=== PATIENT | female | born 1995 | race Caucasian/White ===

== ENCOUNTER → 2016-09-20 | Outpatient (CLI) | payer OTHER ==
[~2016-09-20] VITALS: Ht 165.1 cm; Wt 80.0 kg
[~2016-09-20] MED LIST: MOTR200T44 PO; TYLE325T5 PO; VITAPRTA PO
[2016-09-20 16:27] VITALS: BP 117/75
[2016-09-20 17:13] VITALS: BP 113/67
== END ==
LOC: M LDO 15:57
PROVIDERS: ATTEND Advanced Practice Midwife
DX: O62.0 Primary inadequate contractions (principal); Z3A.36 36 weeks gestation of pregnancy

== ENCOUNTER 2016-09-28 20:24 | Inpatient (IN) | payer OTHER ==
[2016-09-28] VITALS (14 sets, daily range): BP systolic 108–133; BP diastolic 58–79
[~2016-09-28] VITALS: Ht 165.1 cm; Wt 79.0 kg
[2016-09-28] MEDS ORDERED: PENICILLIN G POTASSIUM IV 5 MU in D5W MINI-BAG PLUS 100 ML IV STA (21:05)
[2016-09-28] MEDS ORDERED: LACTATED RINGER'S 1000 ML IV STA (21:05)
[2016-09-28 21:47] LABS: MEAN CORPUSCULAR HGB CONC 33.9 g/dl (32.0-36.5); MEAN CORPUSCULAR VOLUME 82.7 fl (80.0-96.0); RED CELL DISTRIBUTION WIDTH 13.9 % (11.5-14.5); WHITE BLOOD COUNT 13.6 K/mm3 (4.0-10.0)
[2016-09-28] MEDS ORDERED: FENTANYL 2MCG/ML ROPIVACAINE 0.2% NACL 250 ML CADD As Ordered ONE (22:18)
[2016-09-28] MEDS ORDERED: NALOXONE INJ 0.4 MG/1 ML VIAL (J2310) IV PRN (23:30)
[2016-09-28] MEDS ORDERED: EPIDURAL/PCA KEYS XX PRN (23:30)
[2016-09-28] MEDS ORDERED: diphenhydrAMINE INJ 50MG/ML VIAL (J1200) IV PRN (23:30)
[2016-09-28] MEDS ORDERED: EPIDURAL COMMENT XX SCH (23:30)
[2016-09-28] MEDS ORDERED: FENTANYL/ROPIVACAINE/NACL CADD 250 ML EPIDURAL SCH (23:30)
[2016-09-28] MEDS ORDERED: ONDANSETRON 4MG/2ML VIAL (J2405) IV PRN (23:30)
[2016-09-28] MEDS ORDERED: LACTATED RINGER'S 1000 ML IV PRN (23:30)
[2016-09-28] MEDS ORDERED: REFRIGERATOR IV KEYS XX PRN (23:30)
[2016-09-29] VITALS (54 sets, daily range): BP systolic 86–135; BP diastolic 46–82
[2016-09-29] MEDS: PENICILLIN G POTASSIUM IV 2.5 MU in D5W 100 ML IV SCH ×4 (02:05→14:02)
--- NOTE | 2016-09-29 04:36 | HPE ---
DATE OF ADMISSION: 09/28/2016 Angelika is a 21-year-old 3, para 1-1-0-2 at 37-2/7 weeks gestation with EDC of 10/17/2016, based on first trimester ultrasound. She presents to labor and delivery today with report of onset of uncomfortable contractions at approximately 1600, reports them to be about every four minutes. She denies vaginal bleeding and leakage of fluid. Her fetus has been active. care has been fragmented, initiated care [facility], had one visit, transferred to Dr. Tony and has not been seen in a few weeks at that provider. All care has been complicated by fragmented care, psychiatric diagnosis. OBSTETRICAL HISTORY: 1. February 15, 2013, she had a spontaneous vaginal delivery at 39 weeks gestation for a 7 pound 12 ounce female. 2. December 2014, she had a spontaneous vaginal delivery at 36-6/7 weeks of a 6 pound 4 ounce male. OB LABS: Blood type is A positive, antibody screen negative. Pap was normal. Rubella immune, VDRL nonreactive. Hepatitis B surface antigen negative, HIV negative. GBS is unknown, unable to determine if she even had the gestational diabetic screening drawn. Gonorrhea and chlamydia were negative. Urine culture with no growth. She declined genetic serum screening markers. There is no record of gestational diabetic screening. PAST MEDICAL HISTORY: depression, ovarian cyst. SURGERIES: Tonsillectomy. FAMILY HISTORY: Diabetes, cancer, stroke, bipolar, seizure disorder, stomach cancer. SOCIAL HISTORY: The patient is recently . She smoked prior to . She denies alcohol and drug use. There is a known history of positive chlamydia; however, she was negative in the . She denies history of abuse physical, sexual and emotional. ALLERGIES: No known drug allergies. CURRENT MEDICATIONS: She reports not taking any medications. OBJECTIVE: Temperature 98.6, pulse 110, blood pressure is 123/76. She is alert and oriented times three, tenses with contractions; they do palpate moderate. The heart rate is 140 with moderate variability, positive excels, no decelerations noted. [place] every 2-4 minutes. STERILE VAGINAL EXAM: 4-5 cm dilated, 90% effaced, -2 station, bulging bag of water. No bloody show noted with exam. Her abdomen is gravid, cephalic presentation confirmed by bedside ultrasound. Estimated weight 7 pounds. ASSESSMENT: 1. Intrauterine at 37-2/7 weeks. 2. heart rate category one. 3. Labor. PLAN: Admit the patient to labor and delivery, labs as ordered. Out of bed ad callum. Clear liquid diet. She does desire an epidural for her labor coping following an IV fluid bolus and treatment for unknown GBS with IV antibiotics. I do anticipate a normal spontaneous vaginal delivery.
[2016-09-29] MEDS: ePHEDrine SULFATE 25 MG/5 ML(5MG/ML) SYRINGE IV PRN ×2 (08:31→09:01)
[2016-09-29] MEDS ORDERED: OXYTOCIN 30 UNITS IN 0.9% NaCl 500ML IV BAG (J2590) As Ordered ONE (15:50)
[2016-09-29] MEDS ORDERED: OXYTOCIN DRIP 30 UNITS in APPROPRIATE DILUENT 1 EA IV SCH (17:34)
[2016-09-29] MEDS ORDERED: MEASLES,MUMPS,RUBELLA VACCINE INJ (MMR-II) (90707) SC SCH (17:45)
[2016-09-29] MEDS ORDERED: DIBUCAINE 1% OINTMENT 30GM TOP PRN (17:45)
[2016-09-29] MEDS ORDERED: METHYLERGONOVINE MALEATE 0.2 MG TAB PO PRN (17:45)
[2016-09-29] MEDS ORDERED: RHOGAM 300 MCG (1500 IU) INJ (J2790) IM SCH (17:45)
[2016-09-29] MEDS ORDERED: DOCUSATE SODIUM 100 MG CAP PO PRN (17:45)
[2016-09-29] MEDS: IBUPROFEN 800 MG TAB PO PRN (17:50)
--- NOTE | 2016-09-29 18:09 | DN ---
DATE: 09/29/2016 DELIVERY NOTE: Angelika is a 21-year-old 3, para 2-1-0-3 now, who was admitted to labor and delivery in active labor. She utilized an epidural for her labor coping. She did progress to full dilation at 1705, pushed to a normal spontaneous vaginal delivery of a live male in occiput anterior (OA) position with restitution to left occiput transverse (LOT) position 1712. There was no nuchal cord. The shoulders delivered with gentle downward guidance and the corpus immediately followed. [place] was placed on maternal abdomen crying and active. His mouth and nares were bulb suctioned. A spontaneous expulsion of an intact placenta with three-vessel cord by Hernandez mechanism was at 1716. Uterine hemostasis achieved with uterine fundal massage, intravenous (IV) Pitocin rapid infusion. Estimated blood loss 400 mL. Perineum and vagina inspected, noted to have bilateral labial lacerations. The labial lacerations were repaired with 3-0 Rapide in interrupted sutures. male weighed 7 pounds 7 ounces, 3364 grams, scores of eight and nine. Mom does to plan to bottle feed her son. The family have named him Deondre. At the close of delivery, lap counts, needle counts and instrument counts were correct and verified.
[2016-09-29] MEDS: ACETAMINOPHEN 500 MG TAB PO PRN (20:17)
[2016-09-30] MEDS: IBUPROFEN 800 MG TAB PO PRN ×3 (01:57→17:51)
[2016-09-30 05:28] VITALS: BP 106/60
[2016-09-30] MEDS: ACETAMINOPHEN 500 MG TAB PO PRN (07:50)
[2016-09-30] MEDS: PRENATAL VITAMIN TAB PO SCH (07:50)
[2016-09-30] MEDS ORDERED: ADACEL/BOOSTRIX VACCINE (DIPHTH/PERTUSS/ACELL/TETANUS)0.5ML SYR (90715) IM ONE (09:00)
[2016-09-30 18:02] VITALS: BP 122/80
[2016-10-01] MEDS: IBUPROFEN 800 MG TAB PO PRN ×2 (03:07→11:17)
[2016-10-01 06:05] VITALS: BP 104/59
[2016-10-01] MEDS ORDERED: medroxyPROGESTERone ACET IM SUSP 150 MG/ML VIAL (J1050) IM ONE (07:15)
[2016-10-01] MEDS: PRENATAL VITAMIN TAB PO SCH (07:54)
[2016-10-01] MEDS ORDERED: PRENTAB9 PO (08:15)
[2016-10-01] MEDS ORDERED: ACET50TA PO (08:16)
[2016-10-01] MEDS ORDERED: IBUP-1114 PO (08:18)
== END 2016-10-01 11:40 | disposition home or self-care (01) | DRG 560 ==
LOC: M LDO 20:24 → M LDI 20:57 → M OBS 09-29 20:04
PROVIDERS: ADMIT Advanced Practice Midwife; ATTEND Advanced Practice Midwife
PROC: 10E0XZZ Delivery of Products of Conception, External Approach (ICD-10-PCS; principal; 2016-09-29)
PROC: 0HQ9XZZ Repair Perineum Skin, External Approach (ICD-10-PCS; 2016-09-29)
DX: O99.334 Smoking (tobacco) complicating childbirth (principal); F17.210 Nicotine dependence, cigarettes, uncomplicated; Z37.0 Single live birth; Z3A.37 37 weeks gestation of pregnancy; Z83.3 Family history of diabetes mellitus; Z81.8 Family history of other mental and behavioral disorders; Z82.0 Family history of epilepsy and other diseases of the nervous system; Z82.49 Family history of ischemic heart disease and other diseases of the circulatory system; Z80.0 Family history of malignant neoplasm of digestive organs; O70.0 First degree perineal laceration during delivery

== ENCOUNTER 2017-09-09 13:37 | Emergency (ER) | payer OTHER ==
[2017-09-09] MEDS: NS 500 ML IV (14:30)
[2017-09-09 15:14] LABS: BASO % 0.2 % (0.0-1.0); EOS # 0.2 10^3/uL (0.0-0.50); EOS % 1.9 % (0.0-3.0); HEMATOCRIT 38.7 % (36.0-47.0); HEMOGLOBIN 13.9 g/dl (12.0-16.0); IMMATURE GRANULOCYTE % 0.4 % (0-0); LYMPH # 1.9 10^3/uL (1.5-6.5); LYMPH % 20.5 % (24.0-44.0); MEAN CORPUSCULAR HEMOGLOBIN 31.4 pg (27.0-33.0); MEAN CORPUSCULAR HGB CONC 35.9 g/dl (32.0-36.5); MEAN CORPUSCULAR VOLUME 87.4 fl (80.0-96.0); MONO # 0.6 10^3/uL (0.0-0.8); MONO % 6.2 % (0.0-5.0); NEUTROPHILS # 6.7 10^3/uL (1.8-7.7); NEUTROPHILS % 70.8 % (36.0-66.0); PLATELET COUNT, AUTOMATED 263 10^3/uL (150-450); RED BLOOD COUNT 4.43 10^6/uL (4.00-5.40); RED CELL DISTRIBUTION WIDTH 12.6 % (11.5-14.5); WHITE BLOOD COUNT 9.4 10^3/uL (4.0-10.0)
[2017-09-09 15:30] LABS: ANION GAP 7 MEQ/L (8-16); BLOOD UREA NITROGEN 5 MG/DL (7-18); CALCIUM LEVEL 8.5 MG/DL (8.5-10.1); CARBON DIOXIDE LEVEL 23 MEQ/L (21-32); CHLORIDE LEVEL 107 MEQ/L (98-107); CREATININE FOR GFR 0.41 MG/DL (0.55-1.30); GLOMERULAR FILTRATION RATE > 60.0 (>60); GLUCOSE, FASTING 89 MG/DL (70-100); POTASSIUM SERUM 3.6 MEQ/L (3.5-5.1); SODIUM LEVEL 137 MEQ/L (136-145)
[2017-09-09 15:48] LABS: HCG, SERUM QUANTITATIVE 17037 MIU/ML
[2017-09-09 15:55] LABS: KETONE, URINE AUTO RFX NEGATIVE (NEGATIVE); LEUKOCYTE ESTERASE UR AUTO RFX NEGATIVE (NEGATIVE); MUCUS, URINE RFX SMALL (NEGATIVE); NITRITE, URINE AUTO RFX NEGATIVE (NEGATIVE); RBC, URINE AUTO RFX 0 /HPF (0-3); SPECIFIC GRAVITY UR AUTO RFX 1.026 (1.002-1.035); SQUAM EPITHELIAL CELL UR AURFX 1 /HPF (0-6); WBC, URINE AUTO RFX 0 /HPF (0-3)
== END 2017-09-09 17:10 | disposition home or self-care (01) ==
LOC: M ED 13:37
DX: O20.9 Hemorrhage in early pregnancy, unspecified (principal); Z3A.15 15 weeks gestation of pregnancy; O99.342 Other mental disorders complicating pregnancy, second trimester; F31.9 Bipolar disorder, unspecified; F41.9 Anxiety disorder, unspecified; O99.332 Smoking (tobacco) complicating pregnancy, second trimester; F17.210 Nicotine dependence, cigarettes, uncomplicated
CPT/HCPCS: 76811

== ENCOUNTER → 2017-09-22 | Outpatient (CLI) | payer OTHER ==
[2017-09-22 19:08] LABS: BASO % 0.2 % (0.0-1.0); EOS # 0.2 10^3/uL (0.0-0.50); EOS % 1.3 % (0.0-3.0); HEMATOCRIT 39.7 % (36.0-47.0); HEMOGLOBIN 13.8 g/dl (12.0-16.0); IMMATURE GRANULOCYTE % 0.4 % (0-3.0); LYMPH # 2.1 10^3/uL (1.5-6.5); LYMPH % 17.5 % (24.0-44.0); MEAN CORPUSCULAR HEMOGLOBIN 31.5 pg (27.0-33.0); MEAN CORPUSCULAR HGB CONC 34.8 g/dl (32.0-36.5); MEAN CORPUSCULAR VOLUME 90.6 fl (80.0-96.0); MONO # 0.8 10^3/uL (0.0-0.8); MONO % 6.5 % (0.0-5.0); NEUTROPHILS # 8.8 10^3/uL (1.8-7.7); NEUTROPHILS % 74.1 % (36.0-66.0); PLATELET COUNT, AUTOMATED 274 10^3/uL (150-450); RED BLOOD COUNT 4.38 10^6/uL (4.00-5.40); WHITE BLOOD COUNT 11.9 10^3/uL (4.0-10.0)
[2017-09-22 22:49] LABS: CHLAMYDIA DNA AMPLIFICATION NEGATIVE (NEGATIVE); GC DNA AMPLIFICATION NEGATIVE (NEGATIVE)
[2017-09-24 10:25] LABS: RUBELLA IgG QUALITATIVE IMMUNE (IMMUNE)
[2017-09-24 10:26] LABS: HBsAg Prenatal NEGATIVE (NEGATIVE)
[2017-09-24 10:54] LABS: HIV 1&2 SCREEN CENTAUR NEGATIVE (NEGATIVE)
== END ==
LOC: M SMT 13:15
DX: Z34.81 Encounter for supervision of other normal pregnancy, first trimester (principal); Z3A.11 11 weeks gestation of pregnancy
CPT/HCPCS: 86762

== ENCOUNTER → 2017-09-25 | Outpatient (CLI) | payer OTHER | LOC: M RAD 09:40 | DX: Z34.82 Encounter for supervision of other normal pregnancy, second trimester (principal); Z3A.18 18 weeks gestation of pregnancy | CPT/HCPCS: 76816 ==

== ENCOUNTER → 2017-09-30 | Outpatient (REF) | payer OTHER ==
[2017-10-01 00:13] LABS: CHLAMYDIA DNA AMPLIFICATION NEGATIVE (NEGATIVE); GC DNA AMPLIFICATION NEGATIVE (NEGATIVE)
== END ==
LOC: M LAB REF 17:17
DX: Z20.2 Contact with and (suspected) exposure to infections with a predominantly sexual mode of transmission (principal)
CPT/HCPCS: 87591

== ENCOUNTER → 2017-10-21 | Outpatient (CLI) | payer OTHER | LOC: M SMT 11:28 | DX: Z34.82 Encounter for supervision of other normal pregnancy, second trimester (principal); Z3A.22 22 weeks gestation of pregnancy | CPT/HCPCS: 76816 ==

== ENCOUNTER → 2017-12-15 | Outpatient (CLI) | payer OTHER ==
[2017-12-15 13:30] LABS: HEMATOCRIT 34.6 % (36.0-47.0); HEMOGLOBIN 11.9 g/dl (12.0-15.5); MEAN CORPUSCULAR HEMOGLOBIN 31.1 pg (27.0-33.0); MEAN CORPUSCULAR HGB CONC 34.4 g/dl (32.0-36.5); MEAN CORPUSCULAR VOLUME 90.3 fl (80.0-96.0); PLATELET COUNT, AUTOMATED 212 10^3/uL (150-450); RED BLOOD COUNT 3.83 10^6/uL (4.00-5.40); RED CELL DISTRIBUTION WIDTH 12.9 % (11.5-14.5); WHITE BLOOD COUNT 10.2 10^3/uL (4.0-10.0)
[2017-12-15 14:01] LABS: GLUCOSE CHALLENGE TEST 1 HOUR 109 MG/DL (LESS THAN 140)
== END ==
LOC: M LAB 11:52
DX: Z34.82 Encounter for supervision of other normal pregnancy, second trimester (principal)
CPT/HCPCS: 82950

== ENCOUNTER 2017-12-30 15:41 | Inpatient (IN) | payer OTHER ==
[~2017-12-30 15:41] MED LIST changes: +AMOXICILLIN 500 MG CAP PO; -MOTR200T44 PO; -TYLE325T5 PO; -VITAPRTA PO
[2017-12-30] MEDS ORDERED: DOCUSATE SODIUM 100 MG CAP PO (16:45)
[2017-12-30] MEDS: BETAMETHASONE SOLUSPAN 6MG/ML INJ 5ML (J0702) IM (17:18)
[2017-12-30 17:23] LABS: HEMATOCRIT 32.5 % (36.0-47.0); MEAN CORPUSCULAR HEMOGLOBIN 29.7 pg (27.0-33.0); MEAN CORPUSCULAR HGB CONC 33.8 g/dl (32.0-36.5); MEAN CORPUSCULAR VOLUME 87.8 fl (80.0-96.0); PLATELET COUNT, AUTOMATED 206 10^3/uL (150-450); RED CELL DISTRIBUTION WIDTH 12.4 % (11.5-14.5); WHITE BLOOD COUNT 11.6 10^3/uL (4.0-10.0)
[2017-12-30 17:45] LABS: AMPHETAMINES URINE REFLEX NEGATIVE (NEGATIVE); BARBITURATES URINE REFLEX NEGATIVE (NEGATIVE); BENZODIAZEPINES URINE REFLEX NEGATIVE (NEGATIVE); CANNABINOIDS URINE REFLEX NEGATIVE (NEGATIVE); COCAINE METABOLITE URINE REFLE NEGATIVE (NEGATIVE); METHADONE URINE REFLEX NEGATIVE (NEGATIVE); OPIATES URINE REFLEX NEGATIVE (NEGATIVE); PHENCYCLIDINE URINE REFLEX NEGATIVE (NEGATIVE)
[2017-12-30] MEDS: AMOXICILLIN 500 MG CAP PO ×2 (18:08→22:00)
[2017-12-30] MEDS: AZITHROMYCIN 250 MG TAB PO (18:09)
[2017-12-30] MEDS: LACTATED RINGER'S 1000 ML IV (18:13)
[2017-12-30] MEDS ORDERED: AMPICILLIN 2 GM VIAL As Ordered (18:13)
[2017-12-30] MEDS: AMPICILLIN SOD 2 GM in D5W MINI-BAG PLUS 100 ML IV (18:34)
[2017-12-30] MEDS: LR 1,000 ML IV (19:00)
[2017-12-30] MEDS: ACETAMINOPHEN 500 MG TAB PO (21:10)
[2017-12-31] MEDS: LR 1,000 ML IV ×3 (00:34→23:02)
[2017-12-31] MEDS: AMPICILLIN SOD 2 GM in D5W MINI-BAG PLUS 100 ML IV ×4 (00:40→18:03)
[2017-12-31] MEDS: ACETAMINOPHEN 500 MG TAB PO ×2 (03:37→23:25)
[2017-12-31] MEDS: AMOXICILLIN 500 MG CAP PO ×3 (06:00→22:00)
[2017-12-31] MEDS: PRENATAL VITAMINS CHEWABLE TABLET PO (09:37)
[2017-12-31] MEDS ORDERED: SLF 3 ML SYR IV (11:30)
[2017-12-31] MEDS: SLF 3 ML SYR IV (13:24)
[2017-12-31] MEDS: BETAMETHASONE SOLUSPAN 6MG/ML INJ 5ML (J0702) IM (18:03)
[2017-12-31] MEDS: OMEPRAZOLE 20 MG CAP PO (18:45)
[2017-12-31 19:54] LABS: HEMATOCRIT 32.6 % (36.0-47.0); MEAN CORPUSCULAR HEMOGLOBIN 30.6 pg (27.0-33.0); MEAN CORPUSCULAR HGB CONC 33.7 g/dl (32.0-36.5); MEAN CORPUSCULAR VOLUME 90.6 fl (80.0-96.0); PLATELET COUNT, AUTOMATED 218 10^3/uL (150-450); RED CELL DISTRIBUTION WIDTH 12.7 % (11.5-14.5); WHITE BLOOD COUNT 20.9 10^3/uL (4.0-10.0)
[2017-12-31] MEDS: CALCIUM CARBONATE 500 MG CHEW U/D PO (23:00)
[2017-12-31] MEDS: OXYTOCIN DRIP 30 UNITS in APPROPRIATE DILUENT 1 EA IV (23:25)
[2018-01-01] MEDS: AMPICILLIN SOD 2 GM in D5W MINI-BAG PLUS 100 ML IV (00:30)
[2018-01-01] MEDS ORDERED: BICITRA 30ML SOLN UDC As Ordered (04:20)
[2018-01-01] MEDS ORDERED: ceFAZolin 2 GM/D5W 50 ML IV BAG (J0690 PER 500MG) As Ordered (04:20)
[2018-01-01] MEDS ORDERED: MORPHINE PRES-FREE INJ 10 MG/10 ML VIAL (J2274) As Ordered (04:35)
[2018-01-01] MEDS ORDERED: OXYTOCIN INJ 10 UNITS/ML VIAL (J2590) As Ordered (04:36)
[2018-01-01] MEDS ORDERED: METOCLOPRAMIDE INJ 10MG/2ML VIAL (J2765) IV ×3 (05:01→17:01)
[2018-01-01] MEDS ORDERED: ONDANSETRON 4MG/2ML VIAL (J2405) IV ×3 (05:01→17:01)
[2018-01-01] MEDS ORDERED: NALOXONE INJ 0.4 MG/1 ML VIAL (J2310) IV ×4 (05:01→17:01)
[2018-01-01] MEDS ORDERED: NALBUPHINE HCL 10 MG/ML AMP (J2300) IV ×2 (05:01→17:01)
[2018-01-01] MEDS ORDERED: LIDOCAINE 1% MDV INJ 50 ML VIAL As Ordered (05:06)
[2018-01-01] MEDS ORDERED: MIDAZOLAM INJ 2 MG/2 ML VIAL (J2250) As Ordered (05:15)
[2018-01-01] MEDS ORDERED: fentaNYL 100 MCG/2 ML INJECTION (J3010) As Ordered (05:27)
[2018-01-01] MEDS ORDERED: ONDANSETRON 4MG/2ML VIAL (J2405) As Ordered (05:30)
[2018-01-01] MEDS ORDERED: KETOROLAC 60 MG/2 ML VIAL (J1885) As Ordered (05:30)
[2018-01-01 05:32] LABS: CORD GAS ABE A -2.4; CORD GAS HCO3 A 23.4 MEQ/L; CORD GAS O2 SAT A 59.5 %; CORD GAS PCO2 A 44.2 mmHg; CORD GAS PH A 7.342 UNITS; CORD GAS SBC A 21.5 MEQ/L; CORD GAS TCO2 A 24.8 MEQ/L
[2018-01-01 05:34] LABS: CORD GAS ABE V -0.8; CORD GAS HCO3 V 23.5 MEQ/L; CORD GAS O2 SAT V 81.1 %; CORD GAS PCO2 V 37.7 mmHg; CORD GAS PH V 7.412 UNITS; CORD GAS PO2 V 32.8 mmHg; CORD GAS SBC V 23.4 MEQ/L; CORD GAS TCO2 V 24.6 MEQ/L
[2018-01-01] MEDS ORDERED: ePHEDrine SULFATE 25 MG/5 ML(5MG/ML) SYRINGE As Ordered (05:58)
[2018-01-01] MEDS ORDERED: PHENYLephrine HCL 500 MCG/5 ML (100MCG/ML) SYRINGE (J2370) As Ordered (05:58)
[2018-01-01] MEDS ORDERED: fentaNYL 100 MCG/2 ML INJECTION (J3010) IV (06:30)
[2018-01-01] MEDS ORDERED: LR 1,000 ML IV (06:30)
[2018-01-01] MEDS ORDERED: NORCO, ANEXSIA 5/325MG TABLET (HYDROcodone/ACETAMINOPHEN) As Ordered (06:48)
[2018-01-01] MEDS: PERCOCET 5MG/325MG TAB PO (06:56)
[2018-01-01] MEDS: OXYTOCIN DRIP 30 UNITS in APPROPRIATE DILUENT 1 EA IV (07:30)
[2018-01-01] MEDS ORDERED: MOM 30ML SUSPENSION UDC PO (07:30)
[2018-01-01] MEDS: PRENATAL VITAMINS CHEWABLE TABLET PO (08:25)
[2018-01-01] MEDS ORDERED: CALCIUM CARBONATE 500 MG CHEW U/D PO (09:00)
[2018-01-01] MEDS: LR 1,000 ML IV ×2 (11:13→18:48)
[2018-01-01] MEDS: KETOROLAC 30 MG/ML VIAL (J1885) IV ×3 (11:39→23:24)
[2018-01-01] MEDS: PROMETHAZINE 25 MG TAB PO (17:29)
[2018-01-01] MEDS: MEASLES,MUMPS,RUBELLA VACCINE INJ (MMR-II) (90707) SC (19:28)
[2018-01-01] MEDS: RHOGAM 300 MCG (1500 IU) INJ (J2790) IM (19:28)
[2018-01-01] MEDS: diphenhydrAMINE 25 MG CAP PO (20:14)
[2018-01-02] MEDS: KETOROLAC 30 MG/ML VIAL (J1885) IV (05:36)
[2018-01-02 07:36] LABS: HEMATOCRIT 28.9 % (36.0-47.0); HEMOGLOBIN 9.4 g/dl (12.0-15.5); MEAN CORPUSCULAR HEMOGLOBIN 29.9 pg (27.0-33.0); MEAN CORPUSCULAR HGB CONC 32.5 g/dl (32.0-36.5); PLATELET COUNT, AUTOMATED 186 10^3/uL (150-450); RED BLOOD COUNT 3.14 10^6/uL (4.00-5.40); RED CELL DISTRIBUTION WIDTH 13.2 % (11.5-14.5); WHITE BLOOD COUNT 15.2 10^3/uL (4.0-10.0)
[2018-01-02] MEDS: ADACEL/BOOSTRIX VACCINE (DIPHTH/PERTUSS/ACELL/TETANUS)0.5ML SYR (90715) IM (07:36)
[2018-01-02] MEDS: PRENATAL VITAMINS CHEWABLE TABLET PO (07:36)
[2018-01-02] MEDS: SIMETHICONE 80 MG CHEW TAB PO (13:30)
[2018-01-02] MEDS: IBUPROFEN 800 MG TAB PO ×2 (13:30→21:13)
[2018-01-02] MEDS: PERCOCET 5MG/325MG TAB PO ×2 (15:14→19:57)
[2018-01-02] MEDS: DOCUSATE SODIUM 100 MG CAP PO (21:18)
[2018-01-03] MEDS: IBUPROFEN 800 MG TAB PO (05:13)
[2018-01-03] MEDS: PERCOCET 5MG/325MG TAB PO ×2 (05:14→10:25)
[2018-01-03] MEDS: PRENATAL VITAMINS CHEWABLE TABLET PO (07:59)
== END 2018-01-03 12:45 | disposition home or self-care (01) | DRG 540 ==
LOC: M LDO 15:41 → M OBS 01-01 07:58 → M LDI 16:16
PROVIDERS: Advanced Practice Midwife
PROC: 10D00Z1 Extraction of Products of Conception, Low, Open Approach (ICD-10-PCS; principal; 2018-01-01 04:50)
DX: O42.013 Preterm premature rupture of membranes, onset of labor within 24 hours of rupture, third trimester (principal); O60.14X0 Preterm labor third trimester with preterm delivery third trimester, not applicable or unspecified; Z3A.32 32 weeks gestation of pregnancy; F17.210 Nicotine dependence, cigarettes, uncomplicated; F43.10 Post-traumatic stress disorder, unspecified; F31.9 Bipolar disorder, unspecified; Z79.899 Other long term (current) drug therapy; Z37.0 Single live birth; O76 Abnormality in fetal heart rate and rhythm complicating labor and delivery; O99.334 Smoking (tobacco) complicating childbirth; O99.344 Other mental disorders complicating childbirth

== ENCOUNTER → 2018-04-06 | Outpatient (CLI) | payer OTHER ==
[2018-04-06 18:04] LABS: HCG, SERUM QUANTITATIVE < 1.0 MIU/ML
== END ==
LOC: M LAB 16:48
DX: N91.2 Amenorrhea, unspecified (principal)
CPT/HCPCS: 84702

== ENCOUNTER 2018-04-22 16:32 | Emergency (ER) | payer OTHER ==
[2018-04-22 17:21] LABS: BASO % 0.5 % (0.0-1.0); EOS # 0.4 10^3/uL (0.0-0.50); EOS % 4.3 % (0.0-3.0); HEMATOCRIT 42.4 % (36.0-47.0); HEMOGLOBIN 14.9 g/dl (12.0-15.5); IMMATURE GRANULOCYTE % 0.2 % (0-3.0); LYMPH # 2.9 10^3/uL (1.5-6.5); LYMPH % 32.7 % (24.0-44.0); MEAN CORPUSCULAR HEMOGLOBIN 30.1 pg (27.0-33.0); MEAN CORPUSCULAR HGB CONC 35.1 g/dl (32.0-36.5); MEAN CORPUSCULAR VOLUME 85.7 fl (80.0-96.0); MONO # 0.7 10^3/uL (0.0-0.8); MONO % 7.4 % (0.0-5.0); NEUTROPHILS # 4.9 10^3/uL (1.8-7.7); NEUTROPHILS % 54.9 % (36.0-66.0); PLATELET COUNT, AUTOMATED 377 10^3/uL (150-450); RED BLOOD COUNT 4.95 10^6/uL (4.00-5.40); RED CELL DISTRIBUTION WIDTH 12.6 % (11.5-14.5); WHITE BLOOD COUNT 8.9 10^3/uL (4.0-10.0)
[2018-04-22 17:28] LABS: CONTROL LINE HCG INT CTR LINE PRESENT; HCG, SERUM QUALITATIVE NEGATIVE (NEGATIVE)
[2018-04-22 17:39] LABS: ANION GAP 6 MEQ/L (8-16); BLOOD UREA NITROGEN 8 MG/DL (7-18); CARBON DIOXIDE LEVEL 24 MEQ/L (21-32); CHLORIDE LEVEL 110 MEQ/L (98-107); GLOMERULAR FILTRATION RATE > 60.0 (>60); GLUCOSE, FASTING 85 MG/DL (70-100); SODIUM LEVEL 140 MEQ/L (136-145)
[2018-04-22 19:52] LABS: ALBUMIN 3.8 GM/DL (3.2-5.2); ALBUMIN/GLOBULIN RATIO 1.12 (1.00-1.93); ALKALINE PHOSPHATASE 58 U/L (45-117); ALT/SGPT 28 U/L (12-78); AST/SGOT 15 U/L (7-37); BILIRUBIN,DIRECT < 0.1 MG/DL (0.0-0.2); BILIRUBIN,TOTAL 0.4 MG/DL (0.2-1.0); LIPASE 144 U/L (73-393); TOTAL PROTEIN 7.2 GM/DL (6.4-8.2)
[2018-04-22] MEDS: NS 1,000 ML IV (20:11)
[2018-04-22] MEDS: METOCLOPRAMIDE INJ 10MG/2ML VIAL (J2765) IV (20:11)
[2018-04-22] MEDS: GASTROGRAFIN SOLUTION 30ML PO ×2 (20:12→20:15)
[2018-04-22] MEDS: KETOROLAC 30 MG/ML VIAL (J1885) IV (20:12)
[2018-04-22] MEDS ORDERED: ISOVUE-370 76% 100ML VIAL (Q9967) As Ordered (21:02)
[2018-04-22 21:48] LABS: KETONE, URINE AUTO RFX NEGATIVE (NEGATIVE); LEUKOCYTE ESTERASE UR AUTO RFX NEGATIVE (NEGATIVE); MUCUS, URINE RFX SMALL (NEGATIVE); NITRITE, URINE AUTO RFX NEGATIVE (NEGATIVE); RBC, URINE AUTO RFX 0 /HPF (0-3); SPECIFIC GRAVITY UR AUTO RFX 1.009 (1.002-1.035); SQUAM EPITHELIAL CELL UR AURFX 1 /HPF (0-6); WBC, URINE AUTO RFX 0 /HPF (0-3)
[2018-04-22] MEDS: GI COCKTAIL 50ML BTL(HYOSCYAMINE/MAALOX/LIDOCAINE VISCOUS)(1:3:1) PO (22:05)
== END 2018-04-22 22:46 | disposition home or self-care (01) ==
LOC: M ED 16:32
DX: K92.1 Melena (principal); F31.9 Bipolar disorder, unspecified; F41.9 Anxiety disorder, unspecified; F32.9 Major depressive disorder, single episode, unspecified; Z72.0 Tobacco use; Z80.0 Family history of malignant neoplasm of digestive organs; Z83.3 Family history of diabetes mellitus; Z79.899 Other long term (current) drug therapy
CPT/HCPCS: Q9963

== ENCOUNTER 2019-04-25 19:26 | Emergency (ER) | payer OTHER ==
[~2019-04-25] VITALS: Ht 165.1 cm; Wt 72.7 kg
[~2019-04-25 19:26] MED LIST changes: +ACET-716 PO; -AMOXICILLIN 500 MG CAP PO; +BENT10CA PO; +IBUP-1114 PO; +IBUP1TAB7 PO; +MAPA500T2 PO; +MOTR200T44 PO; +NEXP1IMP SC; +PERC5TAB12 PO; +PRENTAB9 PO; +TYLE325T5 PO; +VITAPRTA PO
[2019-04-25 20:00] LABS: BASO % 0.3 % (0.0-1.0); EOS # 0.3 10^3/uL (0.0-0.5); EOS % 2.7 % (0.0-3.0); HEMATOCRIT 43.2 % (36.0-47.0); HEMOGLOBIN 14.9 g/dl (12.0-15.5); LYMPH # 2.7 10^3/uL (1.5-5.0); LYMPH % 23.7 % (24.0-44.0); MEAN CORPUSCULAR HEMOGLOBIN 32.3 pg (27.0-33.0); MEAN CORPUSCULAR HGB CONC 34.5 g/dl (32.0-36.5); MEAN CORPUSCULAR VOLUME 93.5 fl (80.0-96.0); MONO # 0.8 10^3/uL (0.0-0.8); MONO % 7.2 % (0.0-5.0); NEUTROPHILS # 7.5 10^3/uL (1.5-8.5); NEUTROPHILS % 65.6 % (36.0-66.0); PLATELET COUNT, AUTOMATED 305 10^3/uL (150-450); RED BLOOD COUNT 4.62 10^6/uL (4.00-5.40); WHITE BLOOD COUNT 11.5 10^3/uL (4.0-10.0)
[2019-04-25 20:29] LABS: ALBUMIN 3.7 GM/DL (3.2-5.2); ALT/SGPT 23 U/L (12-78); BILIRUBIN,DIRECT 0.1 MG/DL (0.0-0.2); BILIRUBIN,TOTAL 0.4 MG/DL (0.2-1.0); BLOOD UREA NITROGEN 12 MG/DL (7-18); CALCIUM LEVEL 9.4 MG/DL (8.5-10.1); CARBON DIOXIDE LEVEL 29 MEQ/L (21-32); CHLORIDE LEVEL 104 MEQ/L (98-107); CREATININE FOR GFR 0.67 MG/DL (0.55-1.30); GLOMERULAR FILTRATION RATE > 60.0 (>60); GLUCOSE, FASTING 88 MG/DL (70-100); LIPASE 102 U/L (73-393); POTASSIUM SERUM 3.6 MEQ/L (3.5-5.1); SODIUM LEVEL 140 MEQ/L (136-145); TOTAL PROTEIN 7.1 GM/DL (6.4-8.2)
[2019-04-25] MEDS ORDERED: ONDANSETRON 4MG/2ML VIAL (J2405) IV ONE (21:00)
[2019-04-25] MEDS ORDERED: KETOROLAC 30 MG/ML VIAL (J1885) IV ONE (21:00)
[2019-04-25] MEDS ORDERED: NS 1,000 ML IV ONE (21:15)
--- NOTE | 2019-04-25 22:34 | REPVR ---
EXAM: CT Abdomen and Pelvis Without Contrast EXAM DATE/TIME: 04/25/2019 9:33 PM CLINICAL HISTORY: 23 years old, female; Abdominal pain; Flank; Left; Additional info: Lt flank pain, hematuria TECHNIQUE: Imaging protocol: Computed tomography of the abdomen and pelvis without contrast. Axial, coronal and sagittal reformatted images were created and reviewed. Radiation optimization: All CT scans at this facility use at least one of these dose optimization techniques: automated exposure control; mA and/or kV adjustment per patient size (includes targeted exams where dose is matched to clinical indication); or iterative reconstruction. COMPARISON: CT ABD/PEL W/IV ORAL CONTRAS 04/22/2018 9:01 PM FINDINGS: Liver: Unremarkable. Gallbladder and bile ducts: No radiodense gallstones. No biliary ductal dilatation. Pancreas: Unremarkable. Spleen: Unremarkable. Adrenals: Unremarkable. Kidneys and ureters: Subtle distention of the left renal collecting system and ureter with questionable associated periureteral edema. No radiodense calculi. Stomach and bowel: No bowel wall thickening. No obstruction. No pneumatosis. Appendix: Normal. Intraperitoneal space: Trace nonspecific free pelvic fluid, likely physiologic. No organized fluid collection. No free air. Vasculature: Unremarkable. No aneurysm. Lymph nodes: No pathologically enlarged lymph nodes. Bladder: Unremarkable. Reproductive: Mild asymmetric enlargement of the left ovary, possibly secondary to an underlying cystic lesion/follicular cyst. Bones/joints: No acute osseous abnormality. Soft tissues: Small, fat-containing umbilical hernia. IMPRESSION: 1. Limited noncontrast examination. 2. Mild asymmetric enlargement of the left ovary, possibly secondary to an underlying cystic lesion/follicular cyst. If clinically indicated, pelvic ultrasound may be obtained for further evaluation. 3. Subtle distention of the left renal collecting system and ureter with questionable associated periureteral edema. A recently passed stone could produce this appearance. Infection cannot be excluded without intravenous contrast. No radiodense calculi. 4. Additional findings, as above. Electronically signed by: Adrián Rosario On 04/25/2019 22:33:27 PM
[2019-04-25] MEDS ORDERED: CIPROFLOXACIN 500 MG TAB PO ONE (23:30)
[2019-04-25] MEDS ORDERED: PHENAZOPYRIDINE 100 MG TAB PO ONE (23:30)
[2019-04-25] MEDS ORDERED: CIPR-249 PO (23:33)
[2019-04-25] MEDS ORDERED: PHEN-594 PO (23:33)
[2019-04-25 23:39] VITALS: BP 110/70
--- NOTE | 2019-04-27 12:42 | ED PDOC ---
Post-Departure Follow-Up dr chaney and [facility] faxed formal report of ct abd/p for fu Regan Durham MD Apr 27, 2019 12:42
== END 2019-04-25 23:44 | disposition home or self-care (01) ==
LOC: M ED 19:26
DX: N39.0 Urinary tract infection, site not specified (principal); N83.292 Other ovarian cyst, left side; K59.00 Constipation, unspecified; F17.200 Nicotine dependence, unspecified, uncomplicated; Z79.3 Long term (current) use of hormonal contraceptives
CPT/HCPCS: 74176; 80048; 80076; 81001; 83690; 84702; 85025; 87088; 87186; 96361; 96374; 96375; 99284; J1885; J2405

== ENCOUNTER 2019-05-05 11:28 | Emergency (ER) | payer OTHER ==
[~2019-05-05] VITALS: Ht 165.1 cm; Wt 76.8 kg
[~2019-05-05 11:28] MED LIST changes: +CIPR-249 PO; +PHEN-594 PO
[2019-05-05 12:22] LABS: BASO % 0.4 % (0.0-1.0); EOS # 0.3 10^3/uL (0.0-0.5); EOS % 2.4 % (0.0-3.0); HEMATOCRIT 43.4 % (36.0-47.0); HEMOGLOBIN 15.1 g/dl (12.0-15.5); LYMPH # 2.6 10^3/uL (1.5-5.0); LYMPH % 23.5 % (24.0-44.0); MEAN CORPUSCULAR HEMOGLOBIN 32.2 pg (27.0-33.0); MEAN CORPUSCULAR HGB CONC 34.8 g/dl (32.0-36.5); MEAN CORPUSCULAR VOLUME 92.5 fl (80.0-96.0); MONO # 0.8 10^3/uL (0.0-0.8); MONO % 7.4 % (0.0-5.0); NEUTROPHILS # 7.3 10^3/uL (1.5-8.5); NEUTROPHILS % 65.9 % (36.0-66.0); PLATELET COUNT, AUTOMATED 336 10^3/uL (150-450); RED BLOOD COUNT 4.69 10^6/uL (4.00-5.40); WHITE BLOOD COUNT 11.1 10^3/uL (4.0-10.0)
[2019-05-05 12:32] LABS: INR 0.95; PROTHROMBIN TIME 12.4 SECONDS (11.8-14.0)
[2019-05-05 12:33] LABS: PARTIAL THROMBOPLASTIN TIME 29.7 SECONDS (25.0-38.4)
[2019-05-05 12:35] LABS: HCG, SERUM QUALITATIVE NEGATIVE (NEGATIVE)
[2019-05-05 12:44] LABS: ALBUMIN 3.6 GM/DL (3.2-5.2); ALT/SGPT 18 U/L (12-78); BILIRUBIN,DIRECT < 0.1 MG/DL (0.0-0.2); BILIRUBIN,TOTAL 0.3 MG/DL (0.2-1.0); BLOOD UREA NITROGEN 8 MG/DL (7-18); C REACTIVE PROTEIN QUANTITATIV < 0.30 MG/DL (0.00-0.30); CALCIUM LEVEL 8.6 MG/DL (8.5-10.1); CARBON DIOXIDE LEVEL 24 MEQ/L (21-32); CHLORIDE LEVEL 106 MEQ/L (98-107); CREATININE FOR GFR 0.72 MG/DL (0.55-1.30); ERYTHROCYTE SEDIMENTATION RATE 4 mm/hr (0-20); GLOMERULAR FILTRATION RATE > 60.0 (>60); GLUCOSE, FASTING 95 MG/DL (70-100); POTASSIUM SERUM 3.6 MEQ/L (3.5-5.1); SODIUM LEVEL 139 MEQ/L (136-145); TOTAL PROTEIN 7.2 GM/DL (6.4-8.2)
[2019-05-05] MEDS ORDERED: ANUS25SU PR (13:25)
[2019-05-05 13:30] VITALS: BP 112/63
== END 2019-05-05 13:32 | disposition home or self-care (01) ==
LOC: M ED 11:28
DX: K92.1 Melena (principal); K64.9 Unspecified hemorrhoids; F17.200 Nicotine dependence, unspecified, uncomplicated; Z79.3 Long term (current) use of hormonal contraceptives

== ENCOUNTER 2019-06-01 06:52 | Day surgery (SDC) | payer MEDICAID, OTHER ==
[~2019-06-01] VITALS: Ht 165.1 cm; Wt 79.4 kg
[~2019-06-01 06:52] MED LIST changes: +ANUS25SU PR
[2019-06-01] MEDS ORDERED: NS 1,000 ML IV ONE (07:00)
[2019-06-01] MEDS ORDERED: LIDOCAINE 2% INJ 100 MG/5 ML SDV (FOR ANES.) As Ordered ONE (07:50)
[2019-06-01] MEDS ORDERED: PROPOFOL 200 MG/20 ML VIAL As Ordered ONE (07:50)
--- NOTE | 2019-06-01 08:04 | ROOR ---
Patient Name: Angelika Carter Procedure Date: 06/01/2019 7:33 AM Date of : 1995 Age: 24 [facility] Gender: Female Note Status: Finalized Procedure: Colonoscopy Indications: Hematochezia Providers: Linwood Neri MD Referring MD: 1. No Referring Physician 1. No Referring Physician, Admin. Requesting Provider: Medicines: Monitored Anesthesia Care Complications: No immediate complications. Procedure: Pre-Anesthesia Assessment: - Prior to the procedure, a History and Physical was performed, and patient medications and allergies were reviewed. The patient is competent. The risks and benefits of the procedure and the sedation options and risks were discussed with the patient. All questions were answered and informed consent was obtained. Patient identification and proposed procedure were verified by the physician, the nurse and the anesthesiologist in the procedure room. Mental Status Examination: alert and oriented. Airway Examination: normal oropharyngeal airway and neck mobility. Respiratory Examination: clear to auscultation. CV Examination: normal. Prophylactic Antibiotics: The patient does not require prophylactic antibiotics. Prior Anticoagulants: The patient has taken no previous anticoagulant or antiplatelet agents. ASA Grade Assessment: II - A patient with mild systemic disease. After reviewing the risks and benefits, the patient was deemed in satisfactory condition to undergo the procedure. The anesthesia plan was to use monitored anesthesia care (MAC). Immediately prior to administration of medications, the patient was re-assessed for adequacy to receive sedatives. The heart rate, respiratory rate, oxygen saturations, blood pressure, adequacy of pulmonary ventilation, and response to care were monitored throughout the procedure. The physical status of the patient was re-assessed after the procedure. The Colonoscope was introduced through the anus and advanced to the terminal ileum, with identification of the appendiceal orifice and IC valve. The colonoscopy was performed without difficulty. The patient tolerated the procedure well. The quality of the bowel preparation was good. The terminal ileum, ileocecal valve, appendiceal orifice, and rectum were photographed. Scope insertion time was 3 minutes. Scope withdrawal time was 9 minutes. The total duration of the procedure was 12 minutes. Findings: The perianal and digital rectal examinations were normal. The terminal ileum appeared normal. A 4 mm polyp was found in the rectum. The polyp was sessile. The polyp was removed with a jumbo cold forceps. Resection and retrieval were complete. Verification of patient identification for the specimen was done by the physician and nurse using the patient's name, date and medical record number. Estimated blood loss was minimal. Non-bleeding external and internal hemorrhoids were found during retroflexion. The hemorrhoids were medium-sized. The exam was otherwise without abnormality on direct and retroflexion views. Impression: - The examined portion of the ileum was normal. - One 4 mm polyp in the rectum, removed with a jumbo cold forceps. Resected and retrieved. - Non-bleeding external and internal hemorrhoids. - The examination was otherwise normal on direct and retroflexion views. Recommendation: - Patient has a contact number available for emergencies. The signs and symptoms of potential delayed complications were discussed with the patient. Return to normal activities tomorrow. Written discharge instructions were provided to the patient. - High fiber diet. - Continue present medications. - Await pathology results. - Repeat colonoscopy in 5 years for surveillance based on pathology results and due to family history of colon cancer. - Telephone GI clinic for pathology results in 2 weeks. - Return to primary care physician. Linwood Neri MD Linwood Neri MD 06/01/2019 8:04:33 AM Electronically signed by Linwood Neri MD Number of Addenda: 0 Note Initiated On: 06/01/2019 7:33 AM Estimated Blood Loss: Estimated blood loss was minimal.
[2019-06-01 08:21] VITALS: BP 116/71
== END 2019-06-01 08:38 | disposition home or self-care (01) ==
LOC: M OPP 06:52
PROVIDERS: ATTEND Internal Medicine Gastroenterology
DX: K64.8 Other hemorrhoids (principal); K62.1 Rectal polyp; K92.1 Melena; Z79.3 Long term (current) use of hormonal contraceptives; F17.210 Nicotine dependence, cigarettes, uncomplicated

== ENCOUNTER 2020-04-16 15:56 | Emergency (ER) | payer MEDICAID, OTHER ==
[~2020-04-16] VITALS: Ht 165.1 cm; Wt 62.2 kg
[2020-04-16] MEDS ORDERED: LORazepam 1 MG TAB PO STA (17:00)
[2020-04-16 18:21] VITALS: BP 131/75
== END 2020-04-16 18:23 | disposition home or self-care (01) ==
LOC: M ED 15:56
DX: T74.11XA Adult physical abuse, confirmed, initial encounter (principal); Y92.9 Unspecified place or not applicable; F41.9 Anxiety disorder, unspecified; F31.89 Other bipolar disorder; F43.10 Post-traumatic stress disorder, unspecified; Z79.3 Long term (current) use of hormonal contraceptives

== ENCOUNTER 2020-04-21 20:04 | Emergency (ER) | payer MEDICAID, OTHER ==
[~2020-04-21] VITALS: Ht 165.1 cm; Wt 61.4 kg
[2020-04-21 22:00] VITALS: BP 121/85
[2020-04-21 22:17] LABS: CHLAMYDIA DNA AMPLIFICATION NEGATIVE (NEGATIVE); GC DNA AMPLIFICATION NEGATIVE (NEGATIVE)
== END 2020-04-21 22:02 | disposition home or self-care (01) ==
LOC: M ED 20:04
DX: F32.9 Major depressive disorder, single episode, unspecified (principal); F15.10 Other stimulant abuse, uncomplicated; F17.200 Nicotine dependence, unspecified, uncomplicated; Z79.3 Long term (current) use of hormonal contraceptives

== ENCOUNTER 2020-05-27 17:24 | Inpatient (IN) | payer MEDICAID ==
[~2020-05-27] VITALS: Ht 165.1 cm; Wt 58.3 kg
[2020-05-27] MEDS ORDERED: NS 1,000 ML IV SCH (17:37)
[2020-05-27] MEDS ORDERED: SERO200T PO (17:56)
[2020-05-27 18:15] LABS: BASO % 0.3 % (0.0-1.0); EOS # 0.1 10^3/uL (0.0-0.5); EOS % 2.4 % (0.0-3.0); HEMATOCRIT 41.8 % (36.0-47.0); HEMOGLOBIN 14.2 g/dl (12.0-15.5); LYMPH # 2.1 10^3/uL (1.5-5.0); LYMPH % 36.3 % (24.0-44.0); MEAN CORPUSCULAR VOLUME 91.3 fl (80.0-96.0); MONO # 0.5 10^3/uL (0.0-0.8); MONO % 7.7 % (0.0-5.0); NEUTROPHILS # 3.1 10^3/uL (1.5-8.5); PLATELET COUNT, AUTOMATED 274 10^3/uL (150-450); RED BLOOD COUNT 4.58 10^6/uL (4.00-5.40); WHITE BLOOD COUNT 5.8 10^3/uL (4.0-10.0)
[2020-05-27 18:35] LABS: AMPHETAMINES LEVEL URINE POSITIVE (NEGATIVE); BARBITURATES URINE NEGATIVE (NEGATIVE); BENZODIAZEPINES URINE NEGATIVE (NEGATIVE); CANNABINOIDS URINE NEGATIVE (NEGATIVE); COCAINE METABOLITE URINE NEGATIVE (NEGATIVE); METHADONE URINE NEGATIVE (NEGATIVE); OPIATES URINE NEGATIVE (NEGATIVE); PHENCYCLIDINE URINE NEGATIVE (NEGATIVE)
[2020-05-27 18:39] LABS: HCG, SERUM QUALITATIVE NEGATIVE (NEGATIVE)
[2020-05-27 18:47] LABS: ACETAMINOPHEN LEVEL < 2.0 UG/ML (10.0-30.0); ALBUMIN 3.5 GM/DL (3.2-5.2); ALT/SGPT 12 U/L (12-78); BILIRUBIN,DIRECT < 0.1 MG/DL (0.0-0.2); BILIRUBIN,TOTAL 0.4 MG/DL (0.2-1.0); BLOOD UREA NITROGEN 5 MG/DL (7-18); CARBON DIOXIDE LEVEL 25 MEQ/L (21-32); CHLORIDE LEVEL 112 MEQ/L (98-107); CPK CREATINE PHOSPHOKINASE 49 U/L (26-192); CREATININE FOR GFR 0.57 MG/DL (0.55-1.30); ETHYL ALCOHOL (ETHANOL) < 0.003 % (0.000-0.010); GLOMERULAR FILTRATION RATE > 60.0 (>60); GLUCOSE, FASTING 90 MG/DL (70-100); POTASSIUM SERUM 3.7 MEQ/L (3.5-5.1); SALICYLATE LEVEL < 1.7 MG/DL (5.0-30.0); SODIUM LEVEL 141 MEQ/L (136-145); TOTAL PROTEIN 6.4 GM/DL (6.4-8.2)
--- NOTE | 2020-05-28 20:44 | ECGEPIP ---
[facility] - ED Test Date: 2020-05-27 Pat Name: ABISAI MUNSON Department: Room: - Gender: Female [place] Digger: ADRIÁN : 1995 Requested By: SAMEERA Dash Order Number: [id number] Reading MD: Mahi Finney Measurements Intervals [place] Rate: 90 P: 67 FL: 141 QRS: 74 QRSD: 87 T: 41 QT: 395 QTc: 485 Interpretive Statements SINUS RHYTHM WITH SINUS ARRHYTHMIA NONSPECIFIC T-WAVE ABNORMALITY NO PRIOR Electronically Signed on 05-28-2020 20:43:49 EDT by Mahi Finney
[2020-05-29] MEDS: QUEtiapine FUMARATE 200 MG TAB PO SCH ×2 (08:45→21:00)
[2020-05-29] MEDS ORDERED: traZODone 50 MG TAB PO PRN (14:30)
[2020-05-29] MEDS ORDERED: IBUPROFEN 400 MG TAB PO PRN (14:30)
[2020-05-29] MEDS ORDERED: MOM 30ML SUSPENSION UDC PO PRN (14:30)
[2020-05-29] MEDS ORDERED: MAALOX 30 ML SUSP *UDC PO PRN (14:30)
[2020-05-29] MEDS ORDERED: OLANZapine 5 MG TAB PO PRN (14:30)
[2020-05-29 16:51] VITALS: BP 102/63
[2020-05-30 06:29] VITALS: BP 122/81
[2020-05-30] MEDS: QUEtiapine FUMARATE 200 MG TAB PO SCH (09:00)
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
== END 2020-05-30 16:38 | disposition home or self-care (01) | DRG 754 ==
LOC: M ED 17:24 → EDBD 17:24 → M ED INP 05-29 14:53 → M PSY 05-29 15:22
PROVIDERS: ADMIT Psychiatry & Neurology Addiction Medicine; ATTEND Psychiatry & Neurology Psychiatry
DX: F32.9 Major depressive disorder, single episode, unspecified (principal); F15.14 Other stimulant abuse with stimulant-induced mood disorder; F17.200 Nicotine dependence, unspecified, uncomplicated; F41.9 Anxiety disorder, unspecified; Z63.5 Disruption of family by separation and divorce

== ENCOUNTER 2020-08-14 14:42 | Emergency (ER) | payer OTHER ==
[~2020-08-14] VITALS: Ht 165.1 cm; Wt 64.2 kg
[~2020-08-14 14:42] MED LIST changes: -PHEN-594 PO; +PHEN1TAB74 PO; +SERO200T PO
[2020-08-14 14:43] VITALS: BP 112/64
[2020-08-14] MEDS ORDERED: HYDR-3363 PO (15:11)
[2020-08-14] MEDS ORDERED: SERT-141 PO (15:11)
[2020-08-14] MEDS ORDERED: diphenhydrAMINE 50MG/ML VIAL (J1200) IV ONE (16:45)
[2020-08-14] MEDS ORDERED: NS 1,000 ML IV ONE (16:45)
[2020-08-14] MEDS ORDERED: ACETAMINOPHEN 500 MG TAB PO ONE (16:45)
== END 2020-08-14 17:01 | disposition left against medical advice (07) ==
LOC: M ED 14:42
DX: R51.9 Headache, unspecified (principal); Z53.9 Procedure and treatment not carried out, unspecified reason; F41.9 Anxiety disorder, unspecified; F32.9 Major depressive disorder, single episode, unspecified; F17.200 Nicotine dependence, unspecified, uncomplicated; Z79.3 Long term (current) use of hormonal contraceptives

== ENCOUNTER 2020-08-16 20:09 | Emergency (ER) | payer OTHER ==
[~2020-08-16] VITALS: Ht 165.1 cm; Wt 61.4 kg
[~2020-08-16 20:09] MED LIST changes: +HYDR-3363 PO; +SERT-141 PO
[2020-08-16] MEDS ORDERED: METOCLOPRAMIDE INJ 10MG/2ML VIAL (J2765 PER 1) IV ONE (21:00)
[2020-08-16] MEDS ORDERED: ACETAMINOPHEN 500 MG TAB PO ONE (21:00)
[2020-08-16] MEDS ORDERED: NS 1,000 ML IV ONE (21:00)
[2020-08-16 21:37] LABS: BASO % 0.3 % (0.0-1.0); EOS # 0.3 10^3/uL (0.0-0.5); EOS % 2.7 % (0.0-3.0); HEMATOCRIT 41.5 % (36.0-47.0); HEMOGLOBIN 13.8 g/dl (12.0-15.5); LYMPH # 2.9 10^3/uL (1.5-5.0); LYMPH % 29.2 % (24.0-44.0); MEAN CORPUSCULAR HEMOGLOBIN 31.2 pg (27.0-33.0); MEAN CORPUSCULAR HGB CONC 33.3 g/dl (32.0-36.5); MEAN CORPUSCULAR VOLUME 93.7 fl (80.0-96.0); MONO # 0.8 10^3/uL (0.0-0.8); MONO % 8.1 % (0.0-5.0); NEUTROPHILS # 5.9 10^3/uL (1.5-8.5); NEUTROPHILS % 59.3 % (36.0-66.0); PLATELET COUNT, AUTOMATED 274 10^3/uL (150-450); RED BLOOD COUNT 4.43 10^6/uL (4.00-5.40); WHITE BLOOD COUNT 9.9 10^3/uL (4.0-10.0)
[2020-08-16 22:37] LABS: HCG, SERUM QUALITATIVE NEGATIVE (NEGATIVE)
[2020-08-16 22:47] LABS: ALBUMIN 3.4 GM/DL (3.2-5.2); ALT/SGPT 37 U/L (12-78); BILIRUBIN,DIRECT < 0.1 MG/DL (0.0-0.2); BILIRUBIN,TOTAL 0.2 MG/DL (0.2-1.0); BLOOD UREA NITROGEN 8 MG/DL (7-18); CALCIUM LEVEL 8.9 MG/DL (8.5-10.1); CARBON DIOXIDE LEVEL 29 MEQ/L (21-32); CHLORIDE LEVEL 108 MEQ/L (98-107); CREATININE FOR GFR 0.54 MG/DL (0.55-1.30); GLOMERULAR FILTRATION RATE > 60.0 (>60); GLUCOSE, FASTING 74 MG/DL (70-100); POTASSIUM SERUM 4.1 MEQ/L (3.5-5.1); SODIUM LEVEL 140 MEQ/L (136-145); THYROXINE (T4) 6.8 UG/DL (4.5-12.0); TOTAL PROTEIN 6.7 GM/DL (6.4-8.2)
[2020-08-16] MEDS ORDERED: dexameTHASONE 20MG/5ML VIAL (J1100 PER 1MG) IV ONE (23:00)
[2020-08-16] MEDS ORDERED: KETOROLAC 30 MG/ML 1ML VIAL IV ONE (23:00)
[2020-08-16 23:05] LABS: AMPHETAMINES LEVEL URINE NEGATIVE (NEGATIVE); BARBITURATES URINE NEGATIVE (NEGATIVE); BENZODIAZEPINES URINE NEGATIVE (NEGATIVE); CANNABINOIDS URINE NEGATIVE (NEGATIVE); COCAINE METABOLITE URINE NEGATIVE (NEGATIVE); METHADONE URINE NEGATIVE (NEGATIVE); OPIATES URINE NEGATIVE (NEGATIVE); PHENCYCLIDINE URINE NEGATIVE (NEGATIVE)
--- NOTE | 2020-08-16 23:18 | REPVR ---
PROCEDURE INFORMATION: Exam: XR Chest, 1 View Exam date and time: 08/16/2020 10:55 PM Age: 25 years old Clinical indication: Other: Cough; Additional info: Dyspnea/cough TECHNIQUE: Imaging protocol: XR of the chest Views: 1 view. COMPARISON: No relevant prior studies available. FINDINGS: Lungs: Unremarkable. No consolidation. Pleural space: Unremarkable. No pleural effusion. No pneumothorax. Heart/Mediastinum: Unremarkable. No cardiomegaly. Bones/joints: Unremarkable. IMPRESSION: Negative chest. Electronically signed by: Saurav Jiménez On 08/16/2020 23:18:47 PM
--- NOTE | 2020-08-16 23:23 | REPVR ---
PROCEDURE INFORMATION: Exam: CT Cervical Spine Without Contrast Exam date and time: 08/16/2020 10:56 PM Age: 25 years old Clinical indication: Injury or trauma; Fall; Blunt trauma TECHNIQUE: Imaging protocol: Computed tomography images of the cervical spine without contrast. Radiation optimization: All CT scans at this facility use at least one of these dose optimization techniques: automated exposure control; mA and/or kV adjustment per patient size (includes targeted exams where dose is matched to clinical indication); or iterative reconstruction. COMPARISON: No relevant prior studies available. FINDINGS: Bones/joints: Nonspecific straightening. Vertebral body height and AP alignment is preserved. No acute cervical spine fracture. Discs/Spinal canal/Neural foramina: No definite significant central canal stenosis within limitations of technique. Lungs: Lung apices are normal. Pleural space: No visible pneumothorax. Soft tissues: Unremarkable. IMPRESSION: No acute cervical spine fracture. Electronically signed by: Angel Andrea On 08/16/2020 23:24:23 PM
--- NOTE | 2020-08-16 23:25 | REPVR ---
PROCEDURE INFORMATION: Exam: CT Head Without Contrast Exam date and time: 08/16/2020 10:56 PM Age: 25 years old Clinical indication: Injury or trauma; Fall; Blunt trauma (contusions or hematomas); Additional info: Headache/fall TECHNIQUE: Imaging protocol: Computed tomography of the head without contrast. Radiation optimization: All CT scans at this facility use at least one of these dose optimization techniques: automated exposure control; mA and/or kV adjustment per patient size (includes targeted exams where dose is matched to clinical indication); or iterative reconstruction. COMPARISON: No relevant prior studies available. FINDINGS: Brain: Normal. No hemorrhage. Unremarkable white matter. No mass effect. Cerebral ventricles: No ventriculomegaly. Bones/joints: Unremarkable. No acute fracture. Paranasal sinuses: Mucosal disease and nonspecific fluid within the sphenoid sinus. Mastoid air cells: Visualized mastoid air cells are well aerated. Soft tissues: Unremarkable. IMPRESSION: No acute intracranial abnormality. Electronically signed by: Angel Andrea On 08/16/2020 23:26:01 PM
[2020-08-17] MEDS ORDERED: BACT800T5 PO (00:52)
[2020-08-17] MEDS ORDERED: REGL5TAB2 PO (00:52)
[2020-08-17] MEDS ORDERED: KETO10TAB PO (00:52)
[2020-08-17] MEDS ORDERED: BACTRIM 160MG/800MG DS TAB PO ONE (01:00)
[2020-08-17 01:13] VITALS: BP 98/60
== END 2020-08-17 01:15 | disposition home or self-care (01) ==
LOC: M ED 20:09
DX: R51.9 Headache, unspecified (principal); L03.211 Cellulitis of face; F43.10 Post-traumatic stress disorder, unspecified; F17.200 Nicotine dependence, unspecified, uncomplicated; Z79.3 Long term (current) use of hormonal contraceptives; Z79.899 Other long term (current) drug therapy
CPT/HCPCS: 70450; 71045; 72125; 80048; 80076; 80307; 84436; 84443; 84703; 85025; 96361; 96374; 96375; 99284; J1100; J1885; J2765

== ENCOUNTER 2022-09-14 12:26 | Emergency (ER) | payer OTHER ==
[~2022-09-14] VITALS: Ht 165.1 cm; Wt 80.3 kg
[2022-09-14 12:26] VITALS: BP 138/99
[~2022-09-14 12:26] MED LIST changes: +BACT800T5 PO; +ETON68IM SC; +KETO10TAB PO; -NEXP1IMP SC; +REGL5TAB2 PO
[2022-09-14 13:00] LABS: BASO % 0.5 % (0.0-1.0); EOS # 0.2 10^3/uL (0.0-0.5); HEMATOCRIT 42.1 % (36.0-47.0); HEMOGLOBIN 14.6 g/dl (12.0-15.5); LYMPH # 2.3 10^3/uL (1.5-5.0); LYMPH % 28.4 % (24.0-44.0); MEAN CORPUSCULAR HGB CONC 34.7 g/dl (32.0-36.5); MEAN CORPUSCULAR VOLUME 89.4 fl (80.0-96.0); MONO # 0.8 10^3/uL (0.0-0.8); MONO % 9.6 % (2.0-8.0); NEUTROPHILS # 4.7 10^3/uL (1.5-8.5); NEUTROPHILS % 58.9 % (36.0-66.0); PLATELET COUNT, AUTOMATED 352 10^3/uL (150-450); RED BLOOD COUNT 4.71 10^6/uL (4.00-5.40)
[2022-09-14 13:37] LABS: BLOOD UREA NITROGEN < 5 MG/DL (9-23); CALCIUM LEVEL 9.1 MG/DL (8.5-10.1); CARBON DIOXIDE LEVEL 26 MMOL/L (20-31); CHLORIDE LEVEL 103 MMOL/L (98-107); CREATININE FOR GFR 0.62 MG/DL (0.55-1.30); GLOMERULAR FILTRATION RATE > 60.0 (>60); GLUCOSE, FASTING 95 MG/DL (60-100); HCG, SERUM QUANTITATIVE 27815.4 MIU/ML (<4.2); POTASSIUM SERUM 3.7 MMOL/L (3.5-5.1); SODIUM LEVEL 138 MMOL/L (136-145)
[2022-09-14] MEDS ORDERED: VITA65TA PO (16:23)
== END 2022-09-14 16:54 | disposition home or self-care (01) ==
LOC: M ED 12:26
DX: O46.91 Antepartum hemorrhage, unspecified, first trimester (principal); Z3A.01 Less than 8 weeks gestation of pregnancy; Z79.899 Other long term (current) drug therapy

== ENCOUNTER → 2022-09-16 | Outpatient (CLI) | payer OTHER ==
[~2022-09-16] MED LIST changes: +VITA65TA PO
== END ==
LOC: M LAB 09:06
PROVIDERS: ATTEND Specialist
DX: N92.6 Irregular menstruation, unspecified (principal)

== ENCOUNTER → 2022-10-23 | Outpatient (CLI) | payer OTHER | LOC: M PLALAB 09:54 | PROVIDERS: ATTEND Obstetrics & Gynecology | DX: Z34.81 Encounter for supervision of other normal pregnancy, first trimester (principal) ==

== ENCOUNTER → 2022-11-28 | Outpatient (CLI) | payer OTHER ==
[2022-11-28 15:11] LABS: HEMATOCRIT 38.3 % (36.0-47.0); HEMOGLOBIN 13.2 g/dl (12.0-15.5); MEAN CORPUSCULAR HEMOGLOBIN 31.5 pg (27.0-33.0); MEAN CORPUSCULAR HGB CONC 34.5 g/dl (32.0-36.5); MEAN CORPUSCULAR VOLUME 91.4 fl (80.0-96.0); PLATELET COUNT, AUTOMATED 265 10^3/uL (150-450); RED BLOOD COUNT 4.19 10^6/uL (4.00-5.40); WHITE BLOOD COUNT 8.2 10^3/uL (4.0-10.0)
[2022-11-28 16:07] LABS: HIV 1&2 SCREEN ATELLICA NEGATIVE (NEGATIVE)
[2022-11-28 16:16] LABS: HEPATITIS C VIRUS ABY INDEX < 0.0 INDEX (<0.8)
[2022-11-28 17:29] LABS: GC DNA AMPLIFICATION NEGATIVE (NEGATIVE)
== END ==
LOC: M PLALAB 09:23
PROVIDERS: ATTEND Obstetrics & Gynecology
DX: Z34.81 Encounter for supervision of other normal pregnancy, first trimester (principal)

== ENCOUNTER → 2022-12-31 | Outpatient (CLI) | payer OTHER | LOC: M WHC 11:49 | PROVIDERS: ATTEND Obstetrics & Gynecology | DX: Z36.89 Encounter for other specified antenatal screening (principal); Z3A.21 21 weeks gestation of pregnancy ==

== ENCOUNTER → 2023-01-24 | Outpatient (CLI) | payer OTHER | LOC: M WHC 12:31 | PROVIDERS: ATTEND Obstetrics & Gynecology | DX: Z36.2 Encounter for other antenatal screening follow-up (principal); Z3A.25 25 weeks gestation of pregnancy ==

== ENCOUNTER → 2023-02-05 | Outpatient (CLI) | payer OTHER ==
[2023-02-05 14:37] LABS: HEMATOCRIT 37.8 % (36.0-47.0); HEMOGLOBIN 12.9 g/dl (12.0-15.5); MEAN CORPUSCULAR HEMOGLOBIN 31.9 pg (27.0-33.0); MEAN CORPUSCULAR HGB CONC 34.1 g/dl (32.0-36.5); MEAN CORPUSCULAR VOLUME 93.3 fl (80.0-96.0); PLATELET COUNT, AUTOMATED 199 10^3/uL (150-450); RED BLOOD COUNT 4.05 10^6/uL (4.00-5.40); WHITE BLOOD COUNT 10.5 10^3/uL (4.0-10.0)
[2023-02-05 17:27] LABS: GC DNA AMPLIFICATION NEGATIVE (NEGATIVE)
== END ==
LOC: M PLALAB 11:23
PROVIDERS: ATTEND Obstetrics & Gynecology
DX: Z34.92 Encounter for supervision of normal pregnancy, unspecified, second trimester (principal)

== ENCOUNTER → 2023-02-10 | Outpatient (CLI) | payer OTHER | LOC: M LAB 08:06 | PROVIDERS: ATTEND Obstetrics & Gynecology | DX: R73.09 Other abnormal glucose (principal) ==

== ENCOUNTER 2023-04-04 19:08 | Emergency (ER) | payer OTHER ==
[~2023-04-04] VITALS: Ht 165.1 cm; Wt 81.4 kg
[~2023-04-04 19:08] MED LIST changes: +COLA100C5 PO; +IBUP80TA PO; +PERCOCET PO; +SUPETAB56 PO; +TUMS500C PO
[2023-04-04 19:09] VITALS: BP 117/77; TEMP 96.8; O2SAT 98
== END 2023-04-04 20:25 | disposition left against medical advice (07) ==
LOC: M ED 19:08
DX: Z53.21 Procedure and treatment not carried out due to patient leaving prior to being seen by health care provider (principal)

== ENCOUNTER 2025-06-20 12:31 | Inpatient (IN) | payer OTHER ==
[~2025-06-20] VITALS: Ht 165.1 cm; Wt 76.1 kg
[2025-06-20] MEDS: NICOTINE 14 MG/24 HR TRANSDERMAL TD SCH (09:00)
[2025-06-20 13:23] LABS: PLATELET COUNT, AUTOMATED 325 10^3/uL (150-450)
[2025-06-20 13:45] LABS: BARBITURATES URINE NEGATIVE (NEGATIVE); BENZODIAZEPINES URINE NEGATIVE (NEGATIVE); COCAINE METABOLITE URINE NEGATIVE (NEGATIVE); METHADONE URINE NEGATIVE (NEGATIVE)
[2025-06-20 13:46] LABS: OPIATES URINE NEGATIVE (NEGATIVE); PHENCYCLIDINE URINE NEGATIVE (NEGATIVE)
[2025-06-20 13:48] LABS: ETHYL ALCOHOL (ETHANOL) 0.004 % (0.000-0.010)
[2025-06-20 13:50] LABS: ALT/SGPT 17 U/L (7.0-40); AST/SGOT 14 U/L (<34); CALCIUM LEVEL 9.3 MG/DL (8.5-10.1); CARBON DIOXIDE LEVEL 23 MMOL/L (20-31); CHLORIDE LEVEL 107 MMOL/L (98-107); CREATININE FOR GFR 0.59 MG/DL (0.55-1.30); GLOMERULAR FILTRATION RATE > 90.0 (>60); POTASSIUM SERUM 3.7 MMOL/L (3.5-5.1); SALICYLATE LEVEL < 3.0 MG/DL (<30); SODIUM LEVEL 143 MMOL/L (136-145)
[2025-06-20 13:58] LABS: AMPHETAMINES LEVEL URINE POSITIVE (NEGATIVE); CANNABINOIDS URINE POSITIVE (NEGATIVE)
[2025-06-20] MEDS ORDERED: HOME MED LIST COMPLETE! XX SCH (15:35)
[2025-06-20] MEDS ORDERED: OLANZapine 5 MG TAB PO PRN (16:30)
[2025-06-20] MEDS ORDERED: MOM 30 ML SUSPENSION UDC PO PRN (16:30)
[2025-06-20] MEDS ORDERED: MAALOX 30 ML SUSP *UDC PO PRN (16:30)
[2025-06-20] MEDS ORDERED: LORazepam 1 MG TAB PO PRN (16:30)
[2025-06-20] MEDS ORDERED: IBUPROFEN 400 MG TAB PO PRN (16:30)
[2025-06-20] MEDS ORDERED: ACETAMINOPHEN 325 MG TAB PO PRN (16:30)
[2025-06-20] MEDS ORDERED: HALOPERIDOL 5 MG TAB PO PRN (16:30)
[2025-06-20] MEDS ORDERED: traZODone 50 MG TAB PO PRN (16:30)
[2025-06-20 17:02] LABS: Trichomonas vaginalis (AMP) NOT DETECTED (NEGATIVE)
[2025-06-20 17:25] LABS: GC DNA AMPLIFICATION NEGATIVE (NEGATIVE)
[2025-06-20 17:31] VITALS: BP 130/77; TEMP 97.1; O2SAT 100
[2025-06-21 06:16] VITALS: BP 105/66; TEMP 97.4; O2SAT 99
[2025-06-21] MEDS ORDERED: NICOTINE 14 MG/24 HR TRANSDERMAL TD PRN (12:55)
[2025-06-21] MEDS: ESCITALOPRAM OXALATE 5 MG TABLET PO SCH (14:26)
[2025-06-21 16:27] VITALS: BP 117/79; TEMP 97.5; O2SAT 100
[2025-06-21 17:01] LABS: FREE T4 0.75 NG/DL (0.89-1.76); TOTAL T3 105.2 NG/DL (60.0-181.0)
[2025-06-22] MEDS ORDERED: LEVOTHYROXINE 25 MCG TABLET (0.025MG) PO SCH (06:00)
[2025-06-22] MEDS: LEVOTHYROXINE 25 MCG TABLET (0.025MG) PO SCH (06:03)
[2025-06-22 06:29] VITALS: BP 117/73; TEMP 97.6; O2SAT 100
[2025-06-22] MEDS ORDERED: LEXA5TAB13 PO (09:21)
[2025-06-22] MEDS ORDERED: LEVO25TA5 PO (09:21)
== END 2025-06-22 11:32 | disposition home or self-care (01) | DRG 754 ==
LOC: M ED 12:31 → M ED INP 16:28 → M PSY 17:09
PROVIDERS: ADMIT Internal Medicine; ATTEND Internal Medicine
DX: F32.A Depression, unspecified (principal); F17.200 Nicotine dependence, unspecified, uncomplicated; F12.90 Cannabis use, unspecified, uncomplicated; F15.90 Other stimulant use, unspecified, uncomplicated; R45.851 Suicidal ideations; F60.3 Borderline personality disorder; F41.1 Generalized anxiety disorder; F43.10 Post-traumatic stress disorder, unspecified; F41.0 Panic disorder [episodic paroxysmal anxiety]; E03.9 Hypothyroidism, unspecified

== ENCOUNTER → 2025-07-22 | Outpatient (CLI) | payer OTHER ==
[~2025-07-22] MED LIST changes: +LEVO25TA5 PO; +LEXA5TAB13 PO
[2025-07-22 16:16] LABS: HIV 1&2 SCREEN NEGATIVE (NEGATIVE)
[2025-07-22 16:24] LABS: HEPATITIS C VIRUS ABY INDEX < 0.02 INDEX (<0.8)
[2025-07-22 16:47] LABS: Trichomonas vaginalis (AMP) NOT DETECTED (NEGATIVE)
[2025-07-22 17:10] LABS: GC DNA AMPLIFICATION NEGATIVE (NEGATIVE)
== END ==
LOC: M WUC 12:51
PROVIDERS: ATTEND Physician Assistant
DX: Z11.3 Encounter for screening for infections with a predominantly sexual mode of transmission (principal); N77.1 Vaginitis, vulvitis and vulvovaginitis in diseases classified elsewhere